=== PATIENT | female | born 1975 | race Caucasian/White ===

== ENCOUNTER 2017-04-01 19:11 | Inpatient (IN) | payer BC ==
[2017-04-01] MEDS ORDERED: SODIUM CHLORIDE 0.9% 1,000 ML IV STA ×2 (19:38)
[2017-04-01] MEDS ORDERED: HYDROmorphone 1 MG/ML 1 ML SYRINGE IVP STA (19:38)
[2017-04-01] MEDS ORDERED: RX INFO: IV CONTRAST WAS GIVEN 1 EACH MISC MISCELLANE PRN (19:38)
[2017-04-01] MEDS ORDERED: ONDANSETRON 4 MG/2 ML VIAL IVP STA (19:38)
[2017-04-01] MEDS ORDERED: LEVOFLOXACIN 750MG-D5W PMX 750 MG in DEXTROSE/WATER 1 150ML.BAG IVPB STA (19:41)
[2017-04-01] MEDS ORDERED: metroNIDAZOLE 500 MG TAB PO STA (19:45)
[2017-04-01 20:19] LABS: Basophils # (A) 0.1 k/uL (0-0.2); Basophils % (A) 1 %; CH 31.1; CHCM 33.2; Eosinophils # (A) 0.2 k/uL (0-0.7); Eosinophils % (A) 3 %; HDW 2.48; HGB 13.6 gm/dL (11.4-16.0); Luc # (Auto) 0.13; Luc % (Auto) 1; Lymphocytes # (A) 1.7 k/uL (1.0-4.8); Lymphocytes % (A) 18 %; MCH 30.6 pg (25.0-35.0); MCHC 32.5 g/dL (31.0-37.0); MCV 94.2 fL (80.0-100.0); Mean Platelet Volume 7.8; Monocytes # (A) 0.5 k/uL (0-1.0); Monocytes % (A) 5 %; Neutrophils # (A) 6.8 k/uL (1.3-7.7); Neutrophils % (A) 72 %; RBC 4.45 m/uL (3.80-5.40); RDW 11.9 % (11.5-15.5); WBC 9.4 k/uL (3.8-10.6); WBC (Perox) 9.59
[2017-04-01 20:35] LABS: ALT 41 U/L (9-52); AST 16 U/L (14-36); Alkaline Phosphatase 62 U/L (38-126); Amylase <30 U/L (30-110); Anion Gap 9 mmol/L; Blood Urea Nitrogen 9 mg/dL (7-17); Calcium 8.9 mg/dL (8.4-10.2); Carbon Dioxide 24 mmol/L (22-30); Chloride 104 mmol/L (98-107); Glucose 88 mg/dL (74-99); Non-African American GFR(MDRD) >60 (>60 ml/min/1.73 sqM); Potassium 3.8 mmol/L (3.5-5.1); Sodium 137 mmol/L (137-145); Total Bilirubin 0.3 mg/dL (0.2-1.3); Total Protein 6.1 g/dL (6.3-8.2)
[2017-04-01 20:38] LABS: Appearance,Urine Cloudy (Clear); Bilirubin,Urine Negative (Negative); Calcium Oxalate Crystals,Urine Rare /hpf; Glucose,Urine (UA) Negative (Negative); Ketones,Urine Trace (Negative); Leukocyte Esterase,Urine Negative (Negative); Mucus,Urine Few /hpf; Nitrite,Urine Negative (Negative); PH, Urine 5.5 (5.0-8.0); Particle Count 10219; Protein,Urine Trace (Negative); RBC,Urine 9 /hpf (0-5); Specific Gravity,Urine 1.022 (1.001-1.035); Squamous Epithelial Cell,Urine 15 /hpf (0-4); UA Billing (MACRO vs. MICRO) MICRO; WBC,Urine 3 /hpf (0-5)
[2017-04-01 20:43] LABS: INR 1.1 (<1.2)
[2017-04-01 20:44] LABS: Partial Thromboplastin Time 25.2 sec (22.0-30.0); Prothrombin Time 10.7 sec (9.0-12.0)
--- NOTE | 2017-04-01 20:52 | CT ---
EXAMINATION TYPE: CT abdomen pelvis w con DATE OF EXAM: 04/01/2017 COMPARISON: 12/07/2009 HISTORY: Mid abdominal pain with nausea and constipation. History of diverticulitis throughout colon. CT DLP: 1489.30 mGycm Automated exposure control for dose reduction was used. TECHNIQUE: Helical acquisition of images was performed from the lung bases through the pelvis. CONTRAST: Performed without Oral Contrast and with IV Contrast, patient injected with 100 mL of Omnipaque 300. FINDINGS: The lung bases are clear of consolidation. There is mild subsegmental atelectasis at the left lung ba se. Heart size is normal. There are bilateral breast implants that appear intact. Liver spleen pancreas gallbladder appear normal. Bile ducts are not dilated. There is no adrenal mass. Kidneys show satisfactory contrast opacification. There is no hydronephrosi s. There is a 4 mm calcification in the interpolar left kidney. There is no retroperitoneal adenopath y. Bladder distends smoothly. There is no pelvic mass. There is no free fluid in the pelvis. There are numerous diverticula in the transverse colon and descending colon. There is fat stranding a round the mid transverse colon. There is small umbilical hernia that contains omental fat. There is a mild lumbar levoscoliosis. I see no focal bone destruction. Uterus is anteverted. IMPRESSION: THERE ARE NUMEROUS DIVERTICULA IN THE COLON. THERE IS FAT STRANDING AND MILD WALL THICKENING IN THE M ID TRANSVERSE COLON CONSISTENT WITH DIVERTICULITIS. THIS IS THE SAME LOCATION THE INFLAMMATORY MICHELLE NGES ON THE OLD EXAM. NO ABSCESS SEEN. NONOBSTRUCTING SMALL LEFT RENAL CALCULUS.
--- NOTE | 2017-04-01 21:29 | ED ---
Abdominal Pain HPI - General Chief Complaint: Abdominal Pain Stated Complaint: Rectal pain Time Seen by Provider: 04/01/17 19:32 Source: patient Mode of arrival: ambulatory Limitations: no limitations - History of Present Illness Initial Comments: This 41-year-old white female presents complaining of abdominal pain. This is diffuse in nature and has been present for the last 4 days. She states that it is fairly severe in nature. She's had Tylenol 3 without any relief. She also has tried some Augmentin over the last day without any significant relief. She states that she has a long history of diverticulitis and this feels very similar to previous. She denies any fevers but has had occasional chills. She has had some nausea but no vomiting. She did have diarrhea approximate 5 days ago but none since. No other complaints or modifying factors. - Related Data Home Medications Medication Instructions Recorded Confirmed Acetaminophen-Codeine 300-30mg 1 tab PO Q4H PRN 04/01/17 04/01/17 [Tylenol #3] Amoxic-Pot Clav 875-125Mg 875 mg PO BID 04/01/17 04/01/17 [Augmentin 875-125] Dextroamphetamine/Amphetamine 20 mg PO DAILY@1500 04/01/17 04/01/17 [Adderall Xr] Gabapentin [Gralise] 600 mg PO DAILY@1500 04/01/17 04/01/17 Loratadine [Claritin] 10 mg PO DAILY@1500 04/01/17 04/01/17 Rosuvastatin [Crestor] 10 mg PO DAILY@1500 04/01/17 04/01/17 Venlafaxine HCl [Effexor XR] 75 mg PO DAILY@1500 04/01/17 04/01/17 Allergies Allergy/AdvReac Type Severity Reaction Status Date / Time bacitracin Allergy Rash/Hives Verified 04/01/17 19:30 [From Neosporin ([id number])] fluoxetine [From Sarafem] Allergy Rash/Hives Verified 04/01/17 19:30 neomycin Allergy Rash/Hives Verified 04/01/17 19:30 [From Neosporin ([id number])] polymyxin B Allergy Rash/Hives Verified 04/01/17 19:30 [From Neosporin ([id number])] Tetracyclines Allergy Unknown Verified 04/01/17 19:30 Childhood Review of Systems ROS Statement: Those systems with pertinent positive or pertinent negative responses have been documented in the HPI. ROS Other: All systems not noted in ROS Statement are negative. Past Medical History Additional Past Medical History / Comment(s): diverticulitis, History of Any Multi-Drug Resistant Organisms: None Reported Past Surgical History: Appendectomy, Breast Surgery, Section Past Psychological History: ADD/ADHD, Depression Smoking Status: Never smoker Past Alcohol Use History: Occasional Past Drug Use History: None Reported General Exam - General Exam Comments Initial Comments: GENERAL: The patient is well nourished and well hydrated. VITAL SIGNS: Heart rate, blood pressure, respiratory rate reviewed as recorded in nurse's notes. EYES: Pupils are round and reactive. Extraocular movements are intact. No conjunctival / lid redness or swelling. ENT: No external evidence of injury, swelling, or ecchymosis. Airway is patent. Throat is clear. NECK: Nontender. No swelling or evidence of injury. No subcutaneous emphysema. Trachea is midline. No thyroid mass. HEART: Regular rate and rhythm. Good peripheral pulses. LUNGS/CHEST: Breath sounds clear and equal bilaterally. No rales, rhonchi, or wheezes. No ecchymosis, subcutaneous emphysema, or tenderness. ABDOMEN: there is diffuse tenderness noted to the abdomen. No palpable masses or organomegaly. No peritoneal signs. No abdominal wall swelling or ecchymosis. EXTREMITIES: No extremity tenderness. Normal muscle tone and function. No thoracolumbar tenderness. NEUROLOGIC: Sensation is grossly intact. Cranial nerve exam reveals face is symmetrical, tongue is midline, speech is clear. SKIN: No abrasions or ecchymosis is noted. No induration or masses noted. PSYCHIATRIC: Alert and oriented. Appropriate behavior and judgment. Limitations: no limitations Course Vital Signs 04/01/17 04/01/17 19:15 21:13 Temperature 98.5 F Pulse Rate 88 76 Respiratory 20 18 Rate Blood Pressure 127/77 100/60 O2 Sat by Pulse 98 95 Oximetry Medical Decision Making - Medical Decision Making the patient was seen and examined. All diagnostics were reviewed. An IV is started and she is hydrated. She also receives some Levaquin intravenously and Flagyl orally. She received some Dilaudid as well as some Zofran. She has improvement on recheck. The computed tomography scan does show evidence of diverticulitis. The laboratory overall is fairly unremarkable. The urinalysis shows mild hematuria. Due to the significant amount of her abdominal pain, is felt as though she would require admission to the hospital case is discussed with internal medicine and they're agreeable as well. - Lab Data Result diagrams: 04/01/17 20:09 04/01/17 20:09 Lab Results 04/01/17 04/01/17 04/01/17 Range/Units 20:00 20:09 20:09 WBC 9.4 (3.8-10.6) k/uL RBC 4.45 (3.80-5.40) m/uL Hgb 13.6 (11.4-16.0) gm/dL Hct 42.0 (34.0-46.0) % MCV 94.2 (80.0-100.0) fL MCH 30.6 (25.0-35.0) pg MCHC 32.5 (31.0-37.0) g/dL RDW 11.9 (11.5-15.5) % Plt Count 242 (150-450) k/uL Neutrophils % 72 % Lymphocytes % 18 % Monocytes % 5 % Eosinophils % 3 % Basophils % 1 % Neutrophils # 6.8 (1.3-7.7) k/uL Lymphocytes # 1.7 (1.0-4.8) k/uL Monocytes # 0.5 (0-1.0) k/uL Eosinophils # 0.2 (0-0.7) k/uL Basophils # 0.1 (0-0.2) k/uL PT (9.0-12.0) sec INR (<1.2) APTT (22.0-30.0) sec Sodium 137 (137-145) mmol/L Potassium 3.8 (3.5-5.1) mmol/L Chloride 104 (98-107) mmol/L Carbon Dioxide 24 (22-30) mmol/L Anion Gap 9 mmol/L BUN 9 (7-17) mg/dL Creatinine 0.60 (0.52-1.04) mg/dL Est GFR (MDRD) Af Amer >60 (>60 ml/min/1.73 sqM) Est GFR (MDRD) Non-Af >60 (>60 ml/min/1.73 sqM) Glucose 88 (74-99) mg/dL Plasma Lactic Acid Len (0.7-2.0) mmol/L Calcium 8.9 (8.4-10.2) mg/dL Total Bilirubin 0.3 (0.2-1.3) mg/dL AST 16 (14-36) U/L ALT 41 (9-52) U/L Alkaline Phosphatase 62 (38-126) U/L Total Protein 6.1 L (6.3-8.2) g/dL Albumin 3.5 (3.5-5.0) g/dL Amylase <30 L (30-110) U/L Lipase 38 (23-300) U/L Urine Color Yellow Urine Appearance Cloudy H (Clear) Urine pH 5.5 (5.0-8.0) Ur Specific Hobbs 1.022 (1.001-1.035) Urine Protein Trace H (Negative) Urine Glucose (UA) Negative (Negative) Urine Ketones Trace H (Negative) Urine Blood Small H (Negative) Urine Nitrite Negative (Negative) Urine Bilirubin Negative (Negative) Urine Urobilinogen 3.0 (<2.0) mg/dL Ur Leukocyte Esterase Negative (Negative) Urine RBC 9 H (0-5) /hpf Urine WBC 3 (0-5) /hpf Ur Squamous Epith Cells 15 H (0-4) /hpf Calcium Oxalate Crystal Rare H (None) /hpf Urine Mucus Few H (None) /hpf 04/01/17 04/01/17 Range/Units 20:09 20:09 WBC (3.8-10.6) k/uL RBC (3.80-5.40) m/uL Hgb (11.4-16.0) gm/dL Hct (34.0-46.0) % MCV (80.0-100.0) fL MCH (25.0-35.0) pg MCHC (31.0-37.0) g/dL RDW (11.5-15.5) % Plt Count (150-450) k/uL Neutrophils % % Lymphocytes % % Monocytes % % Eosinophils % % Basophils % % Neutrophils # (1.3-7.7) k/uL Lymphocytes # (1.0-4.8) k/uL Monocytes # (0-1.0) k/uL Eosinophils # (0-0.7) k/uL Basophils # (0-0.2) k/uL PT 10.7 (9.0-12.0) sec INR 1.1 (<1.2) APTT 25.2 (22.0-30.0) sec Sodium (137-145) mmol/L Potassium (3.5-5.1) mmol/L Chloride (98-107) mmol/L Carbon Dioxide (22-30) mmol/L Anion Gap mmol/L BUN (7-17) mg/dL Creatinine (0.52-1.04) mg/dL Est GFR (MDRD) Af Amer (>60 ml/min/1.73 sqM) Est GFR (MDRD) Non-Af (>60 ml/min/1.73 sqM) Glucose (74-99) mg/dL Plasma Lactic Acid Len 0.8 (0.7-2.0) mmol/L Calcium (8.4-10.2) mg/dL Total Bilirubin (0.2-1.3) mg/dL AST (14-36) U/L ALT (9-52) U/L Alkaline Phosphatase (38-126) U/L Total Protein (6.3-8.2) g/dL Albumin (3.5-5.0) g/dL Amylase (30-110) U/L Lipase (23-300) U/L Urine Color Urine Appearance (Clear) Urine pH (5.0-8.0) Ur Specific Hobbs (1.001-1.035) Urine Protein (Negative) Urine Glucose (UA) (Negative) Urine Ketones (Negative) Urine Blood (Negative) Urine Nitrite (Negative) Urine Bilirubin (Negative) Urine Urobilinogen (<2.0) mg/dL Ur Leukocyte Esterase (Negative) Urine RBC (0-5) /hpf Urine WBC (0-5) /hpf Ur Squamous Epith Cells (0-4) /hpf Calcium Oxalate Crystal (None) /hpf Urine Mucus (None) /hpf Disposition Clinical Impression: Diverticulitis, Abdominal pain, Nausea, Failure of outpatient treatment Disposition: ADMITTED IP TO THIS HOSP Condition: Fair Referrals: Geo Gloria MD [Primary Care Provider] - 1-2 days Time of Disposition: 21:28 Decision Date: 04/01/17 Decision Time: 21:29
[2017-04-01] MEDS ORDERED: ONDANSETRON 4 MG/2 ML VIAL IVP PRN (21:30)
[2017-04-01] MEDS ORDERED: ACETAMINOPHEN TAB 325 MG TAB PO PRN (21:30)
[2017-04-01] MEDS ORDERED: NALOXONE 0.4 MG/ML 1 ML VIAL IV PRN (21:30)
[2017-04-02] MEDS ORDERED: HYDROmorphone 1 MG/ML 1 ML SYRINGE ONE
[2017-04-02] MEDS ORDERED: ONDANSETRON 4 MG/2 ML VIAL ONE
[2017-04-02] MEDS: PIPERACILLIN-TAZOBACTAM 3.375 GM in DEXTROSE/WATER 1 50ML.BAG IVPB SCH ×2 (03:37→08:48)
[2017-04-02] MEDS: HYDROmorphone 1 MG/ML 1 ML SYRINGE IVP PRN ×3 (04:33→14:19)
[2017-04-02 04:44] VITALS: BMI 33.9
[2017-04-02] MEDS: ENOXAPARIN 40 MG/0.4 ML SYRINGE SQ SCH (08:49)
[2017-04-02] MEDS: PANTOPRAZOLE 40 MG/10 ML VIAL IV SCH (08:50)
[2017-04-02] MEDS: METOCLOPRAMIDE 5 MG/ML 2 ML VIAL IVP SCH ×3 (10:29→23:47)
[2017-04-02] MEDS: ATORVASTATIN 20 MG TAB PO SCH (14:16)
[2017-04-02] MEDS: ADDERALL 20 MG PO SCH (14:16)
[2017-04-02] MEDS: LACTATED RINGERS 1,000 ML IV SCH ×2 (14:17→22:17)
[2017-04-02] MEDS: LORATADINE 10 MG TAB PO SCH (14:19)
[2017-04-02] MEDS: VENLAFAXINE HCL ER 75 MG CAP PO SCH (14:19)
--- NOTE | 2017-04-02 15:03 | HP ---
HISTORY AND PHYSICAL DATE OF SERVICE: April 02, 2017. PRESENTING COMPLAINT: Abdominal pain. HISTORY OF PRESENTING COMPLAINT: A very pleasant 41 -year-old patient of Dr. Gloria. Chronic stable medical conditions include hyperlipidemia, ADHD, depression. The patient had a first bout of diverticulitis about 12 years ago. The patient has been having episodes happened one or two a year. About 5 years ago she saw Dr. Zuñiga and after an episode. Did have a colonoscopy by Dr. Alicja Long, found to have diverticulosis in the transfer in the upper part of the ascending colon. Because of the unusual site, Dr. Zuñiga at that time told to get opinion from [facility] and there was discussion about a possible colostomy. Because of the fear of the surgical consequences, patient would not follow up for that. The patient has one or two bouts a year. This time around she started 5 days ago, increasing abdominal pain, nausea, no fever, some loose stool and did get 3 doses of Augmentin starting 2 days ago. The pain became much severe and hence decided to come in. Lying in bed, tired appearing. REVIEW OF SYSTEMS: Constitutional: Weak and tired. HEENT none. Respiratory none. Cardiovascular none. Gastrointestinal as above. Genitourinary none. Musculoskeletal none. Dermatological and hematologic, lymphatic none. Psychiatry none. Neurological none. PAST MEDICAL HISTORY: Hyperlipidemia, diverticulitis, audio vein, lichen planus, ADHD, depression. PAST SURGICAL HISTORY: Appendectomy, breast surgery, . PSYCH HISTORY: ADHD, depression. SOCIAL HISTORY: The patient is a smoker in the remote past. Alcohol socially. 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 . FAMILY HISTORY: Atrial fibrillation, hyperlipidemia, breast cancer. HOME MEDICATIONS: Effexor XR 75 mg p.o. daily. Crestor 10 mg p.o. daily. Claritin 10 mg p.o. daily. Gabapentin 600 mg p.o. daily. Adderall XR 20 mg p.o. daily. Augmentin 875 p.o. b.i.d. Tylenol 3 one tab q.4 p.r.n. ALLERGIES: BACITRACIN, FLUOXETINE. NEOMYCIN AND TETRACYCLINE. PHYSICAL EXAMINATION: Temperature 97.7, pulse 60, respiratory rate 14, blood pressure 104/56, pulse ox 95% on room air. General appearance: Well built, BMI 33.2, lying in bed tired-appearing. Eyes pupils equal, conjunctivae normal. HEENT: Oral cavity normal. Neck JVD not raised mass. Mass not palpable. Respiratory effort normal. Lungs fair entry. Cardiovascular first and second sounds no edema. Upper abdominal tenderness present. No guarding, rigidity. Liver and spleen not palpable. Lymphatics: No lymph nodes palpable in the neck or axillae. Psychiatry alert x3 mood and affect normal. Neurological pupils equal. Cranial nerves grossly intact. Power and sensation grossly intact. INVESTIGATIONS: White count 9.4, hemoglobin 13.6, potassium 3.8, BUN and creatinine is normal. CT scan of the abdomen and pelvis, numerous diverticula in the colon that is fat stranding and diverticulitis. No abscess is noted and numerous diverticula in the transverse and descending colon. ASSESSMENT: 1. Acute diverticulitis involving the transverse and descending colon having failed outpatient treatment multiple episodes over the course of years. 2. Obesity BMI 33.9. 3. Hyperlipidemia. 4. Attention-deficit/hyperactivity disorder. 5. Depression not otherwise specified. PLAN: Patient is on IV Zosyn, IV fluids. Home medications are resumed. The patient wishes to see Dr. Zuñiga, who she has seen before. The patient will be put on clear liquids. Care was discussed the patient at length. Copy to Dr. Gloria. MARÍA ELENA / ANNA: [phone] /
--- NOTE | 2017-04-02 15:40 | P.GSCN ---
<Mallorie Sweeney - Last Filed: 04/02/17 15:21> History of Present Illness Consult date: 04/02/17 Reason for Consult: Abdominal pain History of present illness: 41-year-old female being seen for a surgical eval at the request of the attending in a patient who has developed diffuse abdominal pain onset 5 days prior. Patient stated the pain initially started on Friday last week did started on oral Augmentin no significant relief. CAT scan of the abdomen pelvis with contrast did show diverticulitis noted in the mid transverse colon with numerous diverticuli in the colon Patient states that she has a history of diverticulitis symptoms feel very similar to prior episodes. Patient reports that she had several years ago a colonoscopy done by Dr. Edvin Pérez was told at that time she had extensive diverticulitis disease in the large colon. Stated that she was seen by Dr. Zuñiga at that admission who did recommend she would benefit from being referred to a colon Rectal surgeon due to the extensive diverticula disease with a possible colostomy Patient States She Did Not Follow-Up and Was Opting to Treat Diverticular Disease Conservatively . Patient States Her Biggest Fear She Does Not One Want to End up with an Ostomy patient states that she has 1-2 bouts of abdominal pain with which she feels is diverticulitis. She states that these episodes normally past. 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 Review of Systems Essentially unremarkable except as mentioned in the present illness Past Medical History Past Medical History: Hyperlipidemia Additional Past Medical History / Comment(s): diverticulitis, autoimmune disease Lichenplanes History of Any Multi-Drug Resistant Organisms: None Reported Past Surgical History: Appendectomy, Breast Surgery, Section Past Psychological History: ADD/ADHD, Depression Smoking Status: Former smoker Past Alcohol Use History: Occasional Past Drug Use History: None Reported - Past Family History Mother Family Medical History: AFIB, Cancer, Hyperlipidemia Additional Family Medical History / Comment(s): breast cancer Father Family Medical History: Diabetes Mellitus Medications and Allergies Home Medications Medication Instructions Recorded Confirmed Type Acetaminophen-Codeine 300-30mg 1 tab PO Q4H PRN 04/01/17 04/01/17 History [Tylenol #3] Amoxic-Pot Clav 875-125Mg 875 mg PO BID 04/01/17 04/01/17 History [Augmentin 875-125] Dextroamphetamine/Amphetamine 20 mg PO DAILY@1500 04/01/17 04/01/17 History [Adderall Xr] Gabapentin [Gralise] 600 mg PO DAILY@1500 04/01/17 04/01/17 History Loratadine [Claritin] 10 mg PO DAILY@1500 04/01/17 04/01/17 History Rosuvastatin [Crestor] 10 mg PO DAILY@1500 04/01/17 04/01/17 History Venlafaxine HCl [Effexor XR] 75 mg PO DAILY@1500 04/01/17 04/01/17 History Allergies Allergy/AdvReac Type Severity Reaction Status Date / Time bacitracin Allergy Rash/Hives Verified 04/01/17 19:30 [From Neosporin ([id number])] fluoxetine [From Sarafem] Allergy Rash/Hives Verified 04/01/17 19:30 neomycin Allergy Rash/Hives Verified 04/01/17 19:30 [From Neosporin ([id number])] polymyxin B Allergy Rash/Hives Verified 04/01/17 19:30 [From Neosporin ([id number])] Tetracyclines Allergy Unknown Verified 04/01/17 19:30 Childhood Surgical - Exam Vital Signs Temp Pulse Resp BP Pulse Ox 98.5 F 88 20 127/77 98 04/01/17 19:15 04/01/17 19:15 04/01/17 19:15 04/01/17 19:15 04/01/17 19:15 GENERAL APPEARANCE: 41-year-old female patient is alert, oriented, reports having diffuse abdominal cramping HEENT: Head is normocephalic and atraumatic. Pupils are equal and reactive. The nares are patent. Oropharynx is clear without lesions. NECK: Supple without lymphadenopathy. Traches midline. HEART: S1, S2. Regular rate and rhythm. no murmur heart palpitation denying chest pain LUNGS: No crackles or wheezes are heard. adequate air entry bilaterally on room air ABDOMEN: Soft, diffuse tenderness across the abdominal wall nausea sensation no active emesis nondistended with good bowel sounds. No peritoneal signs. No palpable organomegaly or masses. EXTREMITIES: Normal skin color and turgor. No cyanosis, rash, ulceration, clubbing or edema. Radial pedal pulses are 2/4 bilaterally. NEUROLOGICAL: No focal deficits. Strength and sensation are grossly intact. Results Impression Present on admission abdominal pain nausea vomiting suspect due to acute diverticulitis failed outpatient treatment CAT scan abdomen and pelvis numerous diverticuli in the colon with mild wall thickening in the mid transverse colon consistent with diverticulitis Obesity BMI 33 Failed outpatient treatment with multiple episodes of acute diverticulitis over the course of several years Plan IV antibiotics as ordered Flagyl and Levaquin IV fluid for hydration DVT and GI prophylaxis Nothing by mouth except ice chips Pain control Further surgical recommendations pending The above impression and plan of care have been discussed and directed by signing physician. Mallorie Sweeney nurse practitioner acting as scribe for signing physician. - Labs 04/01/17 20:09 04/01/17 20:09 Abnormal Lab Results - Last 24 Hours (Table) 04/01/17 04/01/17 Range/Units 20:00 20:09 Total Protein 6.1 L (6.3-8.2) g/dL Amylase <30 L (30-110) U/L Urine Appearance Cloudy H (Clear) Urine Protein Trace H (Negative) Urine Ketones Trace H (Negative) Urine Blood Small H (Negative) Urine RBC 9 H (0-5) /hpf Ur Squamous Epith Cells 15 H (0-4) /hpf Calcium Oxalate Crystal Rare H (None) /hpf Urine Mucus Few H (None) /hpf Diabetes panel 04/01/17 Range/Units 20:09 Sodium 137 (137-145) mmol/L Potassium 3.8 (3.5-5.1) mmol/L Chloride 104 (98-107) mmol/L Carbon Dioxide 24 (22-30) mmol/L BUN 9 (7-17) mg/dL Creatinine 0.60 (0.52-1.04) mg/dL Glucose 88 (74-99) mg/dL Calcium 8.9 (8.4-10.2) mg/dL AST 16 (14-36) U/L ALT 41 (9-52) U/L Alkaline Phosphatase 62 (38-126) U/L Total Protein 6.1 L (6.3-8.2) g/dL Albumin 3.5 (3.5-5.0) g/dL Calcium panel 04/01/17 Range/Units 20:09 Calcium 8.9 (8.4-10.2) mg/dL Albumin 3.5 (3.5-5.0) g/dL Pituitary panel 04/01/17 Range/Units 20:09 Sodium 137 (137-145) mmol/L Potassium 3.8 (3.5-5.1) mmol/L Chloride 104 (98-107) mmol/L Carbon Dioxide 24 (22-30) mmol/L BUN 9 (7-17) mg/dL Creatinine 0.60 (0.52-1.04) mg/dL Glucose 88 (74-99) mg/dL Calcium 8.9 (8.4-10.2) mg/dL Adrenal panel 04/01/17 Range/Units 20:09 Sodium 137 (137-145) mmol/L Potassium 3.8 (3.5-5.1) mmol/L Chloride 104 (98-107) mmol/L Carbon Dioxide 24 (22-30) mmol/L BUN 9 (7-17) mg/dL Creatinine 0.60 (0.52-1.04) mg/dL Glucose 88 (74-99) mg/dL Calcium 8.9 (8.4-10.2) mg/dL Total Bilirubin 0.3 (0.2-1.3) mg/dL AST 16 (14-36) U/L ALT 41 (9-52) U/L Alkaline Phosphatase 62 (38-126) U/L Total Protein 6.1 L (6.3-8.2) g/dL Albumin 3.5 (3.5-5.0) g/dL <José Miguel Zuñiga - Last Filed: 04/02/17 20:54> Surgical - Exam Vital Signs Temp Pulse Resp BP Pulse Ox 98.5 F 88 20 127/77 98 04/01/17 19:15 04/01/17 19:15 04/01/17 19:15 04/01/17 19:15 04/01/17 19:15 Results - Labs 04/01/17 20:09 04/01/17 20:09 Assessment and Plan (1) Diverticulitis Narrative/Plan: As above. Please see consult. Current Visit: Yes Status: Acute Code(s): K57.92 - DVTRCLI OF INTEST, PART UNSP, W/O PERF OR ABSCESS W/O BLEED SNOMED Code(s): 819070567
[2017-04-02] MEDS: metroNIDAZOLE 500 MG TAB PO SCH ×2 (16:36→22:16)
[2017-04-02] MEDS: GRALISE 600 MG PO SCH (17:51)
[2017-04-02] MEDS ORDERED: LEVOFLOXACIN 750MG-D5W PMX 750 MG in DEXTROSE/WATER 1 150ML.BAG IVPB SCH (20:00)
--- NOTE | 2017-04-02 20:54 | P.GSCN ---
History of Present Illness Consult date: 04/02/17 Reason for Consult: Diverticulitis History of present illness: Patient presents to the hospital with complaints of upper abdominal pain. She has a history of diverticulitis in the past. She has had attacks of diverticulitis involving the ascending colon and also the sigmoid colon in the past. She is known to have diffuse diverticulosis. She felt nauseated. She felt upper abdominal bloating. The CAT scan shows acute diverticulitis involving the mid transverse colon without perforation or abscess. She is afebrile without tachycardia. Her white blood cell count is normal. She does feel somewhat better today after starting IV antibiotics. Review of Systems The patient denies any acute changes in vision or hearing, no dysphagia or odynophagia, no chest pain or shortness of breath, no dysuria or hematuria, no headache, no runny nose, no rectal bleeding or melena, no unexplained weight loss Past Medical History Past Medical History: Hyperlipidemia Additional Past Medical History / Comment(s): diverticulitis, autoimmune disease Lichenplanes History of Any Multi-Drug Resistant Organisms: None Reported Past Surgical History: Appendectomy, Breast Surgery, Section Past Psychological History: ADD/ADHD, Depression Smoking Status: Former smoker Past Alcohol Use History: Occasional Past Drug Use History: None Reported - Past Family History Mother Family Medical History: AFIB, Cancer, Hyperlipidemia Additional Family Medical History / Comment(s): breast cancer Father Family Medical History: Diabetes Mellitus Medications and Allergies Home Medications Medication Instructions Recorded Confirmed Type Acetaminophen-Codeine 300-30mg 1 tab PO Q4H PRN 04/01/17 04/01/17 History [Tylenol #3] Amoxic-Pot Clav 875-125Mg 875 mg PO BID 04/01/17 04/01/17 History [Augmentin 875-125] Dextroamphetamine/Amphetamine 20 mg PO DAILY@1500 04/01/17 04/01/17 History [Adderall Xr] Gabapentin [Gralise] 600 mg PO DAILY@1500 04/01/17 04/01/17 History Loratadine [Claritin] 10 mg PO DAILY@1500 04/01/17 04/01/17 History Rosuvastatin [Crestor] 10 mg PO DAILY@1500 04/01/17 04/01/17 History Venlafaxine HCl [Effexor XR] 75 mg PO DAILY@1500 04/01/17 04/01/17 History Allergies Allergy/AdvReac Type Severity Reaction Status Date / Time bacitracin Allergy Rash/Hives Verified 04/01/17 19:30 [From Neosporin ([id number])] fluoxetine [From Sarafem] Allergy Rash/Hives Verified 04/01/17 19:30 neomycin Allergy Rash/Hives Verified 04/01/17 19:30 [From Neosporin ([id number])] polymyxin B Allergy Rash/Hives Verified 04/01/17 19:30 [From Neosporin ([id number])] Tetracyclines Allergy Unknown Verified 04/01/17 19:30 Childhood Surgical - Exam Vital Signs Temp Pulse Resp BP Pulse Ox 98.5 F 88 20 127/77 98 04/01/17 19:15 04/01/17 19:15 04/01/17 19:15 04/01/17 19:15 04/01/17 19:15 Physical exam: General: Well-developed, well-nourished HEENT: Normocephalic, sclerae nonicteric Abdomen: Mild epigastric tenderness, nondistended Extremities: No edema Neuro: Alert and oriented Results - Labs 04/01/17 20:09 04/01/17 20:09 Assessment and Plan (1) Diverticulitis Narrative/Plan: Continue IV antibiotics. Continue clear liquid diet. Repeat CBC tomorrow. We' ll reevaluate tomorrow. Current Visit: Yes Status: Acute Code(s): K57.92 - DVTRCLI OF INTEST, PART UNSP, W/O PERF OR ABSCESS W/O BLEED SNOMED Code(s): 500989410
[2017-04-03] MEDS: LACTATED RINGERS 1,000 ML IV SCH ×2 (05:26→14:49)
[2017-04-03] MEDS ORDERED: METOCLOPRAMIDE 5 MG/ML 2 ML VIAL IVP PRN (07:22)
[2017-04-03] MEDS: METOCLOPRAMIDE 5 MG/ML 2 ML VIAL IVP SCH (07:24)
[2017-04-03 07:27] LABS: Basophils % (A) 0 %; CH 31.3; Eosinophils # (A) 0.1 k/uL (0-0.7); Eosinophils % (A) 2 %; HCT 39.7 % (34.0-46.0); HDW 2.69; HGB 13.2 gm/dL (11.4-16.0); Luc # (Auto) 0.16; Luc % (Auto) 2; Lymphocytes # (A) 1.9 k/uL (1.0-4.8); Lymphocytes % (A) 24 %; MCH 30.7 pg (25.0-35.0); MCHC 33.2 g/dL (31.0-37.0); MCV 92.4 fL (80.0-100.0); Mean Platelet Volume 7.7; Monocytes # (A) 0.5 k/uL (0-1.0); Monocytes % (A) 6 %; Neutrophils # (A) 5.2 k/uL (1.3-7.7); Neutrophils % (A) 66 %; RBC 4.29 m/uL (3.80-5.40); RDW 11.7 % (11.5-15.5); WBC 7.9 k/uL (3.8-10.6); WBC (Perox) 7.99
[2017-04-03] MEDS: ENOXAPARIN 40 MG/0.4 ML SYRINGE SQ SCH (08:01)
[2017-04-03] MEDS: PANTOPRAZOLE 40 MG/10 ML VIAL IV SCH (08:20)
[2017-04-03] MEDS: metroNIDAZOLE 500 MG TAB PO SCH ×2 (08:20→15:23)
--- NOTE | 2017-04-03 10:09 | P.PN ---
<Frances Sweeneyne M - Last Filed: 04/03/17 10:04> Subjective Progress Note Date: 04/03/17 41-year-old female seen and examined at bedside. Patient states anxious to be discharged. States abdominal pain has resolved. Denies any nausea vomiting or frequent stooling. White count this morning 7.9. White count the day before 9.4. Patient states she's been up ambulating in the room and salgado with no abdominal discomfort Objective - Vital Signs Vital signs: Vital Signs Temp 99.0 F 04/03/17 07:00 Pulse 76 04/03/17 07:00 Resp 16 04/03/17 08:00 BP 118/80 04/03/17 07:00 Pulse Ox 98 04/03/17 07:00 Intake & Output 04/02/17 04/03/17 04/03/17 18:59 06:59 18:59 Intake Total 775 2150 120 Output Total 100 Balance 675 2150 120 Weight 95.254 kg 95.254 kg 95.254 kg Intake: Intake, IV Titration 775 2150 Amount Lactated Ringers 1,000 ml 125 2000 @ 125 mls/hr IV .Q8H [facility] Rx#:[id number] Levofloxacin 750Mg-D5w 150 Pmx 750 mg In Dextrose/ Water 1 150ml.bag @ 100 mls/hr IVPB Q24H [facility] Rx#: [id number] Piperacillin-Tazobactam 3 50 .375 gm In Dextrose/Water 1 50ml.bag @ 9.375 mls/ hr IVPB Q8HR [facility] Rx#: [id number] Sodium Chloride 0.9% 1, 600 000 ml @ 100 mls/hr IV . Q10H [facility] Rx#:[id number] Oral 120 Output: Emesis 100 Other: Voiding Method Toilet Toilet Toilet # Voids 1 # Emeses 1 - Exam Physical exam 41-year-old female pleasant resting in bed denies any abdominal discomfort when questioning Lungs essentially clear with adequate air movement on room air Heart S1-S2 audible regular denying chest pain abdomen no facial grimacing with palpitation to the abdominal wall bowel tones present tolerating diet states abdominal discomfort resolving Reports no nausea no vomiting Extremities no edema - Labs CBC & Chem 7: 04/03/17 07:03 04/01/17 20:09 Labs: Microbiology - Last 24 Hours (Table) 04/01/17 20:09 Blood Culture - Preliminary Blood No Growth after 24 hours Assessment and Plan Assessment: Impression Present on admission abdominal pain nausea vomiting suspect due to acute diverticulitis failed outpatient treatment CAT scan abdomen and pelvis numerous diverticuli in the colon with mild wall thickening in the mid transverse colon consistent with diverticulitis with no evidence of perforation or abscess Obesity BMI 33 Failed outpatient treatment with multiple episodes of acute diverticulitis over the course of several years Plan Continue Flagyl and Levaquin as ordered Patient will need an outpatient colonoscopy in the next 6-[address] Zuñiga IV fluid as ordered Prepped for probable discharge soon No evidence of an acute surgical abdomen at this time The above impression and plan of care have been discussed and directed by signing physician. Mallorie Sweeney nurse practitioner acting as scribe for signing physician. <José Miguel Zuñiga - Last Filed: 04/03/17 10:41> Objective - Vital Signs Vital signs: Vital Signs Temp 99.0 F 04/03/17 07:00 Pulse 76 04/03/17 07:00 Resp 16 04/03/17 08:00 BP 118/80 04/03/17 07:00 Pulse Ox 98 04/03/17 07:00 Intake & Output 04/02/17 04/03/17 04/03/17 18:59 06:59 18:59 Intake Total 775 2150 120 Output Total 100 Balance 675 2150 120 Weight 95.254 kg 95.254 kg 95.254 kg Intake: Intake, IV Titration 775 2150 Amount Lactated Ringers 1,000 ml 125 2000 @ 125 mls/hr IV .Q8H [facility] Rx#:[id number] Levofloxacin 750Mg-D5w 150 Pmx 750 mg In Dextrose/ Water 1 150ml.bag @ 100 mls/hr IVPB Q24H [facility] Rx#: [id number] Piperacillin-Tazobactam 3 50 .375 gm In Dextrose/Water 1 50ml.bag @ 9.375 mls/ hr IVPB Q8HR [facility] Rx#: [id number] Sodium Chloride 0.9% 1, 600 000 ml @ 100 mls/hr IV . Q10H [facility] Rx#:[id number] Oral 120 Output: Emesis 100 Other: Voiding Method Toilet Toilet Toilet # Voids 1 # Emeses 1 - Labs CBC & Chem 7: 04/03/17 07:03 04/01/17 20:09 Labs: Microbiology - Last 24 Hours (Table) 04/01/17 20:09 Blood Culture - Preliminary Blood No Growth after 24 hours Assessment and Plan (1) Diverticulitis Current Visit: Yes Status: Acute Code(s): K57.92 - DVTRCLI OF INTEST, PART UNSP, W/O PERF OR ABSCESS W/O BLEED SNOMED Code(s): 980023241
[2017-04-03] MEDS ORDERED: LEVOFLOXACIN 750MG-D5W PMX 750 MG in DEXTROSE/WATER 1 150ML.BAG IVPB SCH ×2 (10:33→16:00)
--- NOTE | 2017-04-03 10:40 | P.PN ---
Subjective Progress Note Date: 04/03/17 Principal diagnosis: Diverticulitis Patient doing much better today. Her pain is much improved. She is afebrile. Her white blood cell count was normal. Her appetite is improving. Objective - Vital Signs Vital signs: Vital Signs Temp 99.0 F 04/03/17 07:00 Pulse 76 04/03/17 07:00 Resp 16 04/03/17 08:00 BP 118/80 04/03/17 07:00 Pulse Ox 98 04/03/17 07:00 Intake & Output 04/02/17 04/03/17 04/03/17 18:59 06:59 18:59 Intake Total 775 2150 120 Output Total 100 Balance 675 2150 120 Weight 95.254 kg 95.254 kg 95.254 kg Intake: Intake, IV Titration 775 2150 Amount Lactated Ringers 1,000 ml 125 2000 @ 125 mls/hr IV .Q8H [facility] Rx#:[id number] Levofloxacin 750Mg-D5w 150 Pmx 750 mg In Dextrose/ Water 1 150ml.bag @ 100 mls/hr IVPB Q24H [facility] Rx#: [id number] Piperacillin-Tazobactam 3 50 .375 gm In Dextrose/Water 1 50ml.bag @ 9.375 mls/ hr IVPB Q8HR [facility] Rx#: [id number] Sodium Chloride 0.9% 1, 600 000 ml @ 100 mls/hr IV . Q10H [facility] Rx#:[id number] Oral 120 Output: Emesis 100 Other: Voiding Method Toilet Toilet Toilet # Voids 1 # Emeses 1 - Exam Abdomen: Soft, mild epigastric tenderness - Labs CBC & Chem 7: 04/03/17 07:03 04/01/17 20:09 Labs: Microbiology - Last 24 Hours (Table) 04/01/17 20:09 Blood Culture - Preliminary Blood No Growth after 24 hours Assessment and Plan (1) Diverticulitis Narrative/Plan: Agree with discharge later today. Gradually increase diet well discharged. Outpatient antibiotics. Follow-up 3-4 weeks. Current Visit: Yes Status: Acute Code(s): K57.92 - DVTRCLI OF INTEST, PART UNSP, W/O PERF OR ABSCESS W/O BLEED SNOMED Code(s): 210926637
[2017-04-03] MEDS: ADDERALL 20 MG PO SCH (14:49)
[2017-04-03] MEDS: LORATADINE 10 MG TAB PO SCH (15:23)
[2017-04-03] MEDS: ATORVASTATIN 20 MG TAB PO SCH (15:23)
[2017-04-03] MEDS: VENLAFAXINE HCL ER 75 MG CAP PO SCH (15:23)
[2017-04-03] MEDS: GRALISE 600 MG PO SCH (15:23)
[2017-04-03 15:49] VITALS: BP 111/76; PULSE 68; RESP 18; TEMP 99.1
--- NOTE | 2017-04-03 17:43 | DS ---
DISCHARGE SUMMARY DATE OF ADMISSION: 04/01/17. DATE OF DISCHARGE: 04/03/17. FINAL DIAGNOSES: 1. Acute diverticulitis involving the transverse and descending colon, having had multiple episodes in the past and having failed outpatient treatment. 2. Obesity; BMI 33.9. 3. Hyperlipidemia. 4. ADHD. 5. Depression, not otherwise specified. 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 The patient again presented with abdominal pain. Doing slightly better. Not much of an appetite currently. Seen by Dr. Zuñiga. I wanted the patient to stay 1 more day, but she is extremely keen to go home and did not want to stay back; hence, she is being discharged. On exam: ABDOMEN: Mild tenderness. No guarding, rigidity. DC MEDICATIONS: 1. Tylenol 3 one tab q.4 p.r.n. 2. Adderall XR 20 mg p.o. daily. 3. Neurontin 600 mg p.o. daily. 4. Claritin 10 mg a day. 5. Crestor 10 mg a day. 6. Effexor XR 75 mg p.o. daily. 7. Lactinex 1 packet p.o. t.i.d. 8. Levaquin 750 mg p.o. daily for 14 tablets. 9. Flagyl 500 mg p.o. t.i.d., 42 tablets. DIET: Clear liquids, advance as tolerated. Follow up with Dr. Zuñiga on 05/01/17, follow Dr. Gloria on 04/09/17. Discussion and discharge planning more than 35 minutes. MMODL / IJN: [id number] /
== END 2017-04-03 17:10 | disposition home or self-care (01) | DRG 392 ==
LOC: EC 19:11 → 5MS5E 21:30
PROVIDERS: ADMIT Hospitalist; ATTEND Hospitalist
DX: K57.32 Diverticulitis of large intestine without perforation or abscess without bleeding (principal); F32.9 Major depressive disorder, single episode, unspecified; E78.5 Hyperlipidemia, unspecified; E66.9 Obesity, unspecified; F90.9 Attention-deficit hyperactivity disorder, unspecified type; Z68.33 Body mass index [BMI] 33.0-33.9, adult; Z79.899 Other long term (current) drug therapy; Z87.891 Personal history of nicotine dependence; Z88.1 Allergy status to other antibiotic agents; Z88.8 Allergy status to other drugs, medicaments and biological substances
CPT/HCPCS: 36415; 74177; 80053; 81001; 82150; 83605; 83690; 85025; 85610; 85730; 87040; 96365; 96366; 96375; 99285

== ENCOUNTER 2020-06-02 12:07 | Emergency (ER) | payer BC ==
--- NOTE | 2020-06-02 12:11 | ED ---
General Adult HPI - General Stated complaint: NVD Time Seen by Provider: 06/02/20 12:10 - History of Present Illness Initial comments: 44-year-old female presents emergency Department with a chief complaint nausea vomiting diarrhea. Patient reports 3 days ago she was weaned off her oral morphine tablets. States she had back surgery and was taking Dilaudid and morphine for pain. Patient states now she was decreased from 30 mg of oral morphine 2 weeks ago to 15 milligrams. And 3 days ago she was completely weaned off of them. Patient states she is withdrawing from narcotics. Patient also reports diarrhea. She does report some diaphoretic episodes. She does report feeling shaky. She denies chest pain or shortness of breath. - Related Data Home Medications Medication Instructions Recorded Confirmed Loratadine [Claritin] 10 mg PO DAILY 04/01/17 06/02/20 Rosuvastatin [Crestor] 10 mg PO DAILY 04/01/17 06/02/20 Venlafaxine HCl [Effexor XR] 75 mg PO DAILY 04/01/17 06/02/20 Baclofen [Lioresal] 10 mg PO Q8H 06/02/20 06/02/20 Docusate [Colace] 100 mg PO BID 06/02/20 06/02/20 HYDROmorphone [Dilaudid] 4 mg PO Q4H PRN 06/02/20 06/02/20 Lactobacillus Acidoph & Bulgar 1 packet PO DAILY 06/02/20 06/02/20 [Lactinex] Methocarbamol [Robaxin-750] 750 mg PO Q8H PRN 06/02/20 06/02/20 Naloxone HCl [Narcan] 4 mg NASAL ONCE PRN 06/02/20 06/02/20 Pregabalin [Lyrica] 150 mg PO BID 06/02/20 06/02/20 Previous Rx's Medication Instructions Recorded Ondansetron Odt [Zofran Odt] 4 mg PO Q8HR PRN #14 tab 06/02/20 Allergies Allergy/AdvReac Type Severity Reaction Status Date / Time bacitracin Allergy Rash/Hives Verified 06/02/20 13:24 [From Neosporin ([id number])] fluoxetine [From Sarafem] Allergy Rash/Hives Verified 06/02/20 13:24 neomycin Allergy Rash/Hives Verified 06/02/20 13:24 [From Neosporin ([id number])] polymyxin B Allergy Rash/Hives Verified 06/02/20 13:24 [From Neosporin ([id number])] Review of Systems ROS Statement: Those systems with pertinent positive or pertinent negative responses have been documented in the HPI. ROS Other: All systems not noted in ROS Statement are negative. Past Medical History Past Medical History: Hyperlipidemia Additional Past Medical History / Comment(s): diverticulitis, autoimmune disease Lichenplanes History of Any Multi-Drug Resistant Organisms: None Reported Past Surgical History: Appendectomy, Breast Surgery, Section Past Psychological History: ADD/ADHD, Depression Past Alcohol Use History: Occasional Past Drug Use History: None Reported - Past Family History Mother Family Medical History: AFIB, Cancer, Hyperlipidemia Additional Family Medical History / Comment(s): breast cancer Father Family Medical History: Diabetes Mellitus General Exam Limitations: no limitations General appearance: alert, in no apparent distress Head exam: Present: atraumatic, normocephalic, normal inspection Eye exam: Present: normal appearance, PERRL, EOMI Pupils: Present: normal accommodation ENT exam: Present: normal exam, normal oropharynx, mucous membranes moist, TM's normal bilaterally, normal external ear exam Neck exam: Present: normal inspection, full ROM. Absent: tenderness Respiratory exam: Present: normal lung sounds bilaterally. Absent: respiratory distress, wheezes, rales Cardiovascular Exam: Present: regular rate, normal rhythm, normal heart sounds GI/Abdominal exam: Present: soft. Absent: distended, tenderness, guarding Extremities exam: Present: normal inspection, full ROM, normal capillary refill Back exam: Present: normal inspection, full ROM Neurological exam: Present: alert, oriented X3, normal gait Psychiatric exam: Present: normal affect, normal mood Skin exam: Present: warm, dry, intact, normal color Course Vital Signs 06/02/20 12:09 Temperature 97.6 F Pulse Rate 56 L Respiratory 18 Rate Blood Pressure 123/80 O2 Sat by Pulse 99 Oximetry Medical Decision Making - Medical Decision Making 44-year-old female presenting to emergency probably chief complaint nausea vomiting diarrhea. On initial evaluation, patient is nauseous and vomiting. She also had diarrhea while she was in emergency department. Patient was given 1.5 L of IV fluids. She was given Zofran, Reglan, Benadryl, Ativan. Patient is going through opiate withdrawal. She is currently on day 3 without morphine and cannot take her Dilaudid because she was vomiting earlier today. CBC unremarkable. CMP reveals hyper chloremia likely secondary to all the vomiting. Patient was also given 4 mg of IV morphine which improved her symptoms. Patient will be discharged with Zofran. Advised to follow up with primary care physician. Return parameters discussed the patient was standing agreeable. Case discussed with physician. - Lab Data Result diagrams: 06/02/20 12:27 06/02/20 13:27 Lab Results 06/02/20 06/02/20 Range/Units 12:27 13:27 WBC 7.5 (3.8-10.6) k/uL RBC 5.17 (3.80-5.40) m/uL Hgb 14.5 (11.4-16.0) gm/dL Hct 43.4 (34.0-46.0) % MCV 83.9 (80.0-100.0) fL MCH 28.1 (25.0-35.0) pg MCHC 33.5 (31.0-37.0) g/dL RDW 14.7 (11.5-15.5) % Plt Count 281 (150-450) k/uL MPV 9.5 Neutrophils % 74 % Lymphocytes % 17 % Monocytes % 4 % Eosinophils % 3 % Basophils % 1 % Neutrophils # 5.5 (1.3-7.7) k/uL Lymphocytes # 1.3 (1.0-4.8) k/uL Monocytes # 0.3 (0-1.0) k/uL Eosinophils # 0.2 (0-0.7) k/uL Basophils # 0.1 (0-0.2) k/uL Sodium 141 (137-145) mmol/L Potassium 3.5 (3.5-5.1) mmol/L Chloride 110 H (98-107) mmol/L Carbon Dioxide 18 L (22-30) mmol/L Anion Gap 13 mmol/L BUN 12 (7-17) mg/dL Creatinine 0.51 L (0.52-1.04) mg/dL Est GFR (CKD-EPI)AfAm >90 (>60 ml/min/1.73 sqM) Est GFR (CKD-EPI)NonAf >90 (>60 ml/min/1.73 sqM) Glucose 147 H (74-99) mg/dL Calcium 9.6 (8.4-10.2) mg/dL Total Bilirubin 0.4 (0.2-1.3) mg/dL AST 22 (14-36) U/L ALT 15 (4-34) U/L Alkaline Phosphatase 79 (38-126) U/L Total Protein 7.6 (6.3-8.2) g/dL Albumin 4.6 (3.5-5.0) g/dL Disposition Clinical Impression: Opiate withdrawal, Nausea vomiting and diarrhea Disposition: HOME SELF-CARE Condition: Stable Instructions (If sedation given, give patient instructions): Opioid Withdrawal (ED) Additional Instructions: Follow-up with the primary care physician. Return to emergency department if symptoms worsen. Prescriptions: Ondansetron Odt [Zofran Odt] 4 mg PO Q8HR PRN #14 tab PRN Reason: Nausea Is patient prescribed a controlled substance at d/c from ED?: No Referrals: Geo Gloria MD [Primary Care Provider] - 1-2 days Time of Disposition: 14:24
[2020-06-02 12:15] VITALS: RESP 18; TEMP 97.6
[2020-06-02] MEDS ORDERED: ONDANSETRON 4 MG/2 ML VIAL IVP STA (12:17)
[2020-06-02] MEDS ORDERED: SODIUM CHLORIDE 0.9% 1,000 ML IV STA (12:17)
[2020-06-02] MEDS ORDERED: PANTOPRAZOLE 40 MG/10 ML VIAL IVP STA (12:18)
[2020-06-02] MEDS ORDERED: METOCLOPRAMIDE 5 MG/ML 2 ML VIAL IVP STA (12:23)
[2020-06-02] MEDS ORDERED: diphenhydrAMINE 50 MG/ML 1 ML VIAL IVP STA (12:24)
[2020-06-02 12:34] LABS: Basophils # (A) 0.1 k/uL (0-0.2); Basophils % (A) 1 %; Eosinophils # (A) 0.2 k/uL (0-0.7); Eosinophils % (A) 3 %; HCT 43.4 % (34.0-46.0); HGB 14.5 gm/dL (11.4-16.0); Lymphocytes # (A) 1.3 k/uL (1.0-4.8); Lymphocytes % (A) 17 %; MCH 28.1 pg (25.0-35.0); MCHC 33.5 g/dL (31.0-37.0); MCV 83.9 fL (80.0-100.0); Mean Platelet Volume 9.5; Monocytes # (A) 0.3 k/uL (0-1.0); Monocytes % (A) 4 %; Neutrophils # (A) 5.5 k/uL (1.3-7.7); Neutrophils % (A) 74 %; Platelet Count 281 k/uL (150-450); RBC 5.17 m/uL (3.80-5.40); RDW 14.7 % (11.5-15.5); WBC 7.5 k/uL (3.8-10.6)
[2020-06-02] MEDS ORDERED: LORazepam 2 MG/ML INJ IV STA (13:23)
[2020-06-02 13:51] LABS: ALT 15 U/L (4-34); AST 22 U/L (14-36); African American GFR (CKD) >90 (>60 ml/min/1.73 sqM); Albumin 4.6 g/dL (3.5-5.0); Alkaline Phosphatase 79 U/L (38-126); Anion Gap 13 mmol/L; Blood Urea Nitrogen 12 mg/dL (7-17); Calcium 9.6 mg/dL (8.4-10.2); Carbon Dioxide 18 mmol/L (22-30); Chloride 110 mmol/L (98-107); Glucose 147 mg/dL (74-99); Non-African American GFR(CKD) >90 (>60 ml/min/1.73 sqM); Potassium 3.5 mmol/L (3.5-5.1); Sodium 141 mmol/L (137-145); Total Bilirubin 0.4 mg/dL (0.2-1.3); Total Protein 7.6 g/dL (6.3-8.2)
[2020-06-02] MEDS ORDERED: MORPHINE SULFATE 4 MG/ML SYRINGE IVP STA (14:18)
[2020-06-02 14:55] VITALS: BP 114/71; PULSE 80
== END 2020-06-02 14:55 | disposition home or self-care (01) ==
LOC: EC 12:07
DX: F11.23 Opioid dependence with withdrawal (principal); R19.7 Diarrhea, unspecified; E78.5 Hyperlipidemia, unspecified; F32.9 Major depressive disorder, single episode, unspecified; F90.9 Attention-deficit hyperactivity disorder, unspecified type; Z79.899 Other long term (current) drug therapy; Z88.1 Allergy status to other antibiotic agents; Z90.49 Acquired absence of other specified parts of digestive tract; Z87.891 Personal history of nicotine dependence
CPT/HCPCS: 36415; 80053; 85025; 99284; 96374; 96375 ×5; 96361; J2060; J2270; J1200; J2765; C9113